=== PATIENT | female | born 1985 | race Caucasian/White ===

== ENCOUNTER → 2020-08-04 | Outpatient (CLI) | payer MEDICAID, SELFPAY ==
[2020-08-04 08:08] VITALS: BMI 30.6
[2020-08-04 11:08] LABS: Bacteria 0 SEEN /hpf (None Seen); Mucous, Urine 0 SEEN /hpf (<or=2+); Red Blood Cells-Urine 0 SEEN /hpf (0-5)
[2020-08-04 11:09] LABS: Color, Urine Yellow (Yellow); Glucose, Dipstick Normal (Normal); Ketone-Dipstick Negative (Negative); Leukocyte Esterase-Dipstick Negative /ul (Negative); Nitrite-Dipstick Negative (Negative); Occult Blood-Urine Negative /ul (Negative); Protein-Dipstick Negative (Negative); Urine Bilirubin Dipstick Negative (Negative); Urine Clarity Clear (Clear); Urine Urobilinogen Normal (Normal)
[2020-08-04 11:15] LABS: Squamous Epithelial Cells - UA 0-5 SEEN /hpf (5-10); White Blood Cells 0 SEEN /hpf (0-5)
== END | disposition home or self-care (01) ==
LOC: LABSPEC 10:25
PROVIDERS: Referring Provider Physician Assistant; Visit Provider Physician Assistant
DX: N39.0 Urinary tract infection, site not specified (principal)
CPT/HCPCS: 81001; 87077; 87086; 87088

== ENCOUNTER → 2020-12-23 | Outpatient (CLI) | payer MEDICAID, SELFPAY | END | disposition home or self-care (01) | LOC: LABSPEC 08:57 | PROVIDERS: Referring Provider Physician Assistant; Visit Provider Physician Assistant | DX: Z11.52 Encounter for screening for COVID-19 (principal) | CPT/HCPCS: 87635; U0005; U0003 ==

== ENCOUNTER 2021-03-31 13:52 | Outpatient (CLI) | payer MEDICAID, SELFPAY | END 2021-03-31 23:59 | disposition short-term general hospital (02) | LOC: LABSPEC 13:53 | PROVIDERS: Referring Provider Physician Assistant; Visit Provider Physician Assistant | DX: Z11.52 Encounter for screening for COVID-19 (principal) | CPT/HCPCS: 87635; U0003; U0005 ==

== ENCOUNTER 2021-04-13 13:50 | Outpatient (CLI) | payer MEDICAID, SELFPAY | END 2021-04-13 23:59 | disposition short-term general hospital (02) | LOC: LABSPEC 13:51 | PROVIDERS: Referring Provider Physician Assistant; Visit Provider Physician Assistant | DX: U07.1 COVID-19 (principal) | CPT/HCPCS: 87635; U0003; U0005 ==

== ENCOUNTER 2022-02-28 09:19 | Emergency (ER) | payer MEDICAID, SELFPAY ==
[2022-02-28 09:20] VITALS: BP 131/86; PULSE 109; RESP 18; TEMP 35.8; O2SAT 100; BMI 28.8
--- NOTE | 2022-02-28 10:10 | ED.VIS.FEGU ---
HPI HPI - Female History of Present Illness Chief Complaint: Complaint Informant: patient Narrative Narrative: 37-year-old female presenting to the emergency department with a chief complaint of genital lesions. Patient states that she saw her data operations leader about a month ago and at that point she did not have any lesions that they can test. She states now she has a group of lesions in the introitus that is causing her discomfort. 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 The patient notes that she has a lot of anxiety about this. She is currently in a monogamous relationship. [facility] Medical History Dysuria Urinary frequency Vaginal discharge Home Medications bupropion HCl 100 mg tablet,12 hr sustained-release (Wellbutrin SR) 100 mg PO DAILY 08/04/20 [History Last Taken Unknown] gabapentin 100 mg capsule 100 mg PO DAILY 08/04/20 [History Last Taken Unknown] sertraline 20 mg/mL oral concentrate (Zoloft) 20 mg PO DAILY 08/04/20 [History Last Taken Unknown] Allergy/AdvReac Type Severity Reaction Status Date / Time No Known Allergies Allergy Unverified 02/28/22 09:19 Social History (Updated 02/28/22 @ 10:[address] Roge Mejia DO) Smoking Status: Never smoker substance use type: does not use ROS ROS ED Constitutional Constitutional ED: Denies chills or weight loss Eyes Eyes: Denies change in vision or diplopia ENT ENT ED: Denies ear pain, rhinorrhea or sore throat Cardiovascular Cardiovascular: Denies chest pain, orthopnea, palpitations or racing heartbeat Respiratory/Chest Respiratory/Chest: Denies cough, dyspnea or orthopnea Gastrointestinal Gastrointestinal: Denies abdominal pain, diarrhea, nausea or vomiting Genitourinary Genitourinary ED: Reports other Details: Vaginal lesions ; Denies dysuria, hematuria or urinary frequency Musculoskeletal Musculoskeletal: Denies arthralgias or myalgias Integumentary Denies abscess or rash Neurologic Neurologic: Denies headache(s) or weakness Psychiatric Psychiatric: Denies anxiety, depression, suicidal ideation or suicidal thoughts Endocrine Endocrinology: Denies polydipsia, polyphagia or polyuria Allergic/Immunologic Allergic/Immunologic ED: Denies mouth swelling, tongue swelling or urticaria EXAM Physical Exam Const Vital Signs: 02/28/22 09:20 Temperature 96.5 F L Temperature Source Temporal Pulse Rate 109 H Respiratory Rate 18 Blood Pressure 131/86 H Blood Pressure Mean 101 Pulse Ox 100 Oxygen Delivery Method Room Air Positive well nourished and well developed General Appearance ED: well developed HEENT Reports normocephalic, head/scalp atraumatic and moist mucous membranes Eyes PERRL and EOMs intact bilaterally Neck no lymphadenopathy, supple and no JVD Resp normal respiratory effort and clear to auscultation bilaterally Cardio regular rate, regular rhythm and no murmurs GI normal to inspection, nondistended, normoactive bowel sounds and non-tender Palpation: soft Narrative: There is no obvious vaginal discharge. There are no herpetic lesions. At the 6 o'clock position in the normal lithotomy position the patient has numerous flesh-colored lesions in clusters consistent with genital warts. I do not appreciate any erythema or secondary infection. Back/Spine no CVA tenderness and normal ROM Extremity normal to inspection General Extremety ED: Negative for edema General Extremity: Negative for edema Neuro oriented x3 and CN's II-XII intact bilaterally Sensorium / Orientation: alert Motor Exam: strength 5/5 throughout Psych mental status grossly normal Mood & Affect: Negative for depressed or tearful Skin no rashes or lesions noted and no wounds MDM MDM MDM Narrative Medical decision making narrative: Viral culture was obtained. Patient was advised that following up with her data operations leader would be the optimal solution. She was given Vistaril for her anxiety as she is very nervous and I can write a prescription for this for the short-term. Patient understands the plan is comfortable with it return if worsening or concerns Discharge Plan Triage Chief Complaint: Complaint ED Provider: Roge Mejia Dx/Rx/DC Orders Clinical Impression: Genital warts Instructions: Genital Warts (Condyloma), HPV and Genital Warts Taking ... Prescriptions: No Action gabapentin 100 mg capsule 100 mg PO DAILY bupropion HCl [Wellbutrin SR] 100 mg tablet sustained-release 12 hr 100 mg PO DAILY sertraline [Zoloft] 20 mg/mL concentrate 20 mg PO DAILY Primary Care Provider: Ponce Saxena Referrals: Ponce Saxena MD [Primary Care Provider] - Activity Restrictions/Additional Instructions: Please follow-up with your PENAL OFFICER as soon as possible Disposition Disposition: Home, Self Care
[2022-02-28] MEDS: hydrOXYzine PAM 25 MG Capsule PO (10:24)
== END 2022-02-28 10:30 | disposition home or self-care (01) ==
LOC: ED 10:24
PROVIDERS: Emergency Provider Emergency Medicine; PCP Family Medicine; Visit Provider Emergency Medicine
DX: F41.9 Anxiety disorder, unspecified (principal); A63.0 Anogenital (venereal) warts
CPT/HCPCS: 87255; 99283